=== PATIENT | male | born 1960 | race Caucasian/White ===

== ENCOUNTER 2017-01-05 13:14 | Emergency (ER) | payer OTHER ==
[~2017-01-05] VITALS: Ht 175.3 cm; Wt 86.2 kg
[~2017-01-05 13:14] MED LIST: ACET325T9 PO; ALBU2.5V14 NEB; FURO-68 PO; LACT10SO PO; ONDA4TAB10 SL; PANT40TA3 PO; PROP40SO PO; SOFO400T PO; SPIR100T2 PO; TAMS0.4C97 PO; [UNRECOGNIZED DRUG - CODE] PO
[2017-01-05] MEDS ORDERED: IV NORMAL SALINE 1000ML BAG 1,000 ML IV SCH (13:37)
[2017-01-05] MEDS ORDERED: ONDANSETRON PF 4 MG/2 ML VIAL. IV ONE (13:45)
[2017-01-05] MEDS ORDERED: IOHEXOL 300 MG/ML 100ML VIAL. IV ONE (13:45)
[2017-01-05] MEDS ORDERED: 0.9 % SODIUM CHLORIDE 10 ML DISP.SYRIN. IV PRN (13:45)
--- NOTE | 2017-01-05 13:46 | PHYS DOC ---
Past Medical History Past Medical History: GERD, Other Additional Past Medical Histor: Hepatitis C/ knOwn portal vein thrombosis Past Surgical History: Other Additional Past Surgical Histo: bilateral shoulders, bilateral hips, lower leg left Smoking: Cigarettes, Quit Greater Than 1 Year Alcohol Use: None Drug Use: None Adult General Chief Complaint Chief Complaint: SHORTNESS OF BREATH [facility] HPI Is a pleasant 56-year-old male inmate coming from a correctional facility with progressive shortness of breath and hemoptysis. Patient admits of last week is having progressive shortness of breath while walking and exerting himself with a productive cough used to be just blood-tinged sputum and now is coughing clots. Patient was smoker in the past as quit >20 years ago. He admits to having hepatitis C and a portal vein thrombosis but does not seem to be on anticoagulation. patient presents with an episode of nausea and vomiting where he had blood as well that he believes he ingested. he has right upper quadrant abdominal pain began with coughing. Patient says the pain in his chest is centrally located with no radiation to the back radiation to the neck or shoulder. It is not constant and GOES with the cough. Pain at this time is only 3 of 10. Patient denies any fevers, chills, night sweats, weight loss,diarrhea, constipation or UTI symptoms.denies any trauma, travel outside the country or recent antibiotic use. does complain of left calf pain and left thigh pain. This pain began about the same time is shortness breath began. He has no PE risk factors Review of Systems Review of Systems Constitutional: Denies fever or chills [] Eyes: Denies change in visual acuity, redness, or eye pain [] HENT: Denies nasal congestion or sore throat [] Respiratory:combined shortness of breath and the cough. Cardiovascular: No additional information not addressed in HPI [] GI: as been suffering from right upper quadrant abdominal pain with nausea and vomiting 1 described as hematemesis no diarrhea patient : Denies dysuria or hematuria [] Musculoskeletal: Denies back pain or joint pain complain of left thigh and left calf pain Integument: Denies rash or skin lesions [] Neurologic: Denies headache, focal weakness or sensory changes [] Endocrine: Denies polyuria or polydipsia [] All other systems were reviewed and found to be within normal limits, except as documented in this note. Current Medications Current Medications Current Medications Medications (Trade) Dose Ordered Sig/Ameya Start Time Stop Time Status Last Admin Dose Admin Info (Do NOT chart on this entry -- for MONITORING) 1 each PRN DAILY PRN 01/05/17 14:00 01/07/17 13:59 Iohexol (Omnipaque 300 Mg/ml) 75 ml 1X ONCE 01/05/17 13:45 01/05/17 13:46 DC Ondansetron HCl (Zofran) 4 mg 1X ONCE 01/05/17 13:45 01/05/17 13:46 DC 01/05/17 14:17 4 MG Sodium Chloride (Normal Saline Flush) 10 ml QSHIFT PRN 01/05/17 13:45 Allergies Allergies Allergies Coded Allergies Type Severity Reaction Last Updated Verified Carbapenems Allergy Intermediate 10/01/14 No Cephalosporins Allergy Intermediate 10/01/14 No Penicillins Allergy Intermediate 10/01/14 No aztreonam Allergy Intermediate 10/01/14 No morphine Allergy Intermediate 10/01/14 No Physical Exam Physical Exam Constitutional: Well developed, well nourished, no acute distress, non-toxic appearance. [] HENT: Normocephalic, atraumatic, bilateral external ears normal, oropharynx moist, no oral exudates, nose normal. [] Eyes: PERRLA, EOMI, conjunctiva normal, no discharge. [] Neck: Normal range of motion, no tenderness, supple, no stridor. [] Cardiovascular:Heart rate regular rhythm, no murmur [] Lungs & Thorax: Bilateral breath sounds clear to auscultation [] Abdomen: Bowel sounds normal, soft, no tenderness, no masses, no pulsatile masses. [] Skin: Warm, dry, no erythema, no rash. [] Back: No tenderness, no CVA tenderness. [] Extremities: No tenderness, no cyanosis, no clubbing, ROM intact, no edema. [] Neurologic: Alert and oriented X 3, normal motor function, normal sensory function, no focal deficits noted. [] Psychologic: Affect normal, judgement normal, mood normal. [] Current Patient Data Vital Signs Vital Signs Date Time Temp Pulse Resp B/P (MAP) Pulse Ox O2 Delivery O2 Flow Rate FiO2 01/05/17 13:25 98.3 53 22 139/67 (91) 95 Room Air 98.3 Lab Values Laboratory Tests Test 01/05/17 14:06 White Blood Count 4.4 x10^3/uL (4.0-11.0) Red Blood Count 4.02 x10^6/uL (4.30-5.70) L Hemoglobin 13.5 g/dL (13.0-17.5) Hematocrit 39.6 % (39.0-53.0) Mean Corpuscular Volume 99 fL (79-100) Mean Corpuscular Hemoglobin 33 pg (25-35) Mean Corpuscular Hemoglobin Concent 34 g/dL (31-37) Red Cell Distribution Width 14.9 % (11.5-14.5) H Platelet Count 86 x10^3/uL (140-400) L Neutrophils (%) (Auto) 64 % (31-73) Lymphocytes (%) (Auto) 20 % (24-48) L Monocytes (%) (Auto) 12 % (0-9) H Eosinophils (%) (Auto) 4 % (0-3) H Basophils (%) (Auto) 1 % (0-3) Neutrophils # (Auto) 2.8 x10^3uL (1.8-7.7) Lymphocytes # (Auto) 0.9 x10^3/uL (1.0-4.8) L Monocytes # (Auto) 0.5 x10^3/uL (0.0-1.1) Eosinophils # (Auto) 0.2 x10^3/uL (0.0-0.7) Basophils # (Auto) 0.0 x10^3/uL (0.0-0.2) Sodium Level 136 mmol/L (136-145) Potassium Level 4.3 mmol/L (3.5-5.1) Chloride Level 102 mmol/L (98-107) Carbon Dioxide Level 29 mmol/L (21-32) Anion Gap 5 (6-14) L Blood Urea Nitrogen 10 mg/dL (8-26) Creatinine 0.7 mg/dL (0.7-1.3) Estimated GFR (Cockcroft-Gault) 117.1 Glucose Level 84 mg/dL (70-99) Lactic Acid Level 1.0 mmol/L (0.4-2.0) Calcium Level 9.2 mg/dL (8.5-10.1) Magnesium Level Pending Total Bilirubin Pending Direct Bilirubin Pending Aspartate Amino Transferase (AST) Pending Alanine Aminotransferase (ALT) Pending Alkaline Phosphatase Pending Troponin I Quantitative < 0.017 ng/mL (0.000-0.055) GZ-[id number]-H-Type Natriuretic Peptide 173 pg/mL (0-124) H Total Protein Pending Albumin Pending Lipase Pending Thyroid Stimulating Hormone (TSH) 2.395 uIU/mL (0.358-3.74) Laboratory Tests 01/05/17 14:06 Laboratory Tests 01/05/17 14:06 EKG EKG [] Radiology/Procedures Radiology/Procedures []Seen review AP chest reviewed by me 1350 3 PM 01/05/2017 demonstrates no acute infiltrate, no cardiomegaly, no Fine's hump, no pleural effusion. Course & Med Decision Making Course & Med Decision Making Pertinent Labs and Imaging studies reviewed. (See chart for details) Differential diagnosis: Acute myocardial ischemia, heart failure, cardiac tamponade, bronchospasm, pulmonary embolism, pneumothorax, pulmonary infection i.e. bronchitis or pneumonia, upper airway obstruction, anaphylaxis, aspiration , psychogenic, pulmonary contusion, toxidrome, pneumomediastinum, noncardiogenic pulmonary edema or ARDS, COPD, tuberculosis, cystic fibrosis, asthma, high altitude pulmonary edema, valvular dysfunction, cardiac dysrhythmia , stroke, neuromuscular diseases like myasthenia gravis gravis, ALS, Guillain- Lundberg syndrome, metabolic acidosis to include diabetic ketoacidosis, sepsis, and obstructive disorders like massive obesity [] Differential diagnosis for chest pain: Pericarditis, myocarditis, endocarditis, pneumothorax, pneumonia, aortic dissection, esophageal spasm, esophagitis, peptic ulcer disease, acute coronary syndrome, mediastinitis, Boerhaave syndrome , musculoskeletal chest wall pain, costochondritis, intercostal strain, rib fracture, pulmonary contusion, pneumonitis, pleural effusion, pericardial effusion, pericardial tamponode, and pleurisy. EKG arrival read by me demonstrates at TM heart rate of 53 sinus rhythm with a P -wave to be QRS UT interval 144 which is normal, QRS width which is 98 which is normal, QTc 45 which is normal, this is normal looking EKG with no evidence of right heart strain consistent with pulmonary embolism no S1 Q3 T3 Time is now 12:40 PM patient is resting currently waiting for a CAT scan of the chest to be completed. Other laboratory work resulted patient's CBC is normal, CMP is normal, proBNP is mildly elevated at 173 patient's troponin is negative anion gap is negative. Is a patient's lower leg pain and history of portal vein thrombosis ultrasound as been ordered as well as a CAT scan of the chest ruling out pulmonary embolism. Laboratory Tests Test 01/05/17 14:06 White Blood Count 4.4 x10^3/uL (4.0-11.0) Red Blood Count 4.02 x10^6/uL (4.30-5.70) Hemoglobin 13.5 g/dL (13.0-17.5) Hematocrit 39.6 % (39.0-53.0) Mean Corpuscular Volume 99 fL (79-100) Mean Corpuscular Hemoglobin 33 pg (25-35) Mean Corpuscular Hemoglobin Concent 34 g/dL (31-37) Red Cell Distribution Width 14.9 % (11.5-14.5) Platelet Count 86 x10^3/uL (140-400) Neutrophils (%) (Auto) 64 % (31-73) Lymphocytes (%) (Auto) 20 % (24-48) Monocytes (%) (Auto) 12 % (0-9) Eosinophils (%) (Auto) 4 % (0-3) Basophils (%) (Auto) 1 % (0-3) Neutrophils # (Auto) 2.8 x10^3uL (1.8-7.7) Lymphocytes # (Auto) 0.9 x10^3/uL (1.0-4.8) Monocytes # (Auto) 0.5 x10^3/uL (0.0-1.1) Eosinophils # (Auto) 0.2 x10^3/uL (0.0-0.7) Basophils # (Auto) 0.0 x10^3/uL (0.0-0.2) Sodium Level 136 mmol/L (136-145) Chloride Level 102 mmol/L (98-107) Carbon Dioxide Level 29 mmol/L (21-32) Anion Gap 5 (6-14) Blood Urea Nitrogen 10 mg/dL (8-26) Estimated GFR (Cockcroft-Gault) 117.1 Glucose Level 84 mg/dL (70-99) Lactic Acid Level 1.0 mmol/L (0.4-2.0) Calcium Level 9.2 mg/dL (8.5-10.1) Troponin I Quantitative < 0.017 ng/mL (0.000-0.055) Patient will be turned over to oncoming physician Dr. Rolle pending CT chest for PE rule out and also on the lower legs. Patient sells a PT/INR also pending at this time. please react and treatment. Findings and disposition appropriately if needed Dragon Disclaimer Dragon Disclaimer This electronic medical record was generated, in whole or in part, using a voice recognition dictation system. Departure Departure Referrals: NADYA HOFFMAN (PCP) CHRIS PATHAK MD Jan 05, 2017 13:46
--- NOTE | 2017-01-05 13:58 | EKG ---
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
[2017-01-05] MEDS ORDERED: CONTRAST GIVEN MC PRN (14:00)
--- NOTE | 2017-01-05 14:13 | RAD ---
Portable chest, 01/05/2017: History: Chest pain, shortness of breath, coughing up blood The heart size and pulmonary vascularity are normal. No pulmonary infiltrates are seen. There is no evidence of pleural fluid. IMPRESSION: No acute cardiopulmonary abnormality is detected.
[2017-01-05 14:23] LABS: BASO % 1 % (0-3); EOS % 4 % (0-3); HEMATOCRIT 39.6 % (39.0-53.0); HEMOGLOBIN 13.5 g/dL (13.0-17.5); LYMPH # 0.9 x10^3/uL (1.0-4.8); LYMPH % 20 % (24-48); MEAN CORPUSCULAR HEMOGLOBIN 33 pg (25-35); MEAN CORPUSCULAR HGB CONC 34 g/dL (31-37); MEAN CORPUSCULAR VOLUME 99 fL (79-100); MONO % 12 % (0-9); NEUT % 64 % (31-73); PLATELET COUNT 86 x10^3/uL (140-400); RED BLOOD COUNT 4.02 x10^6/uL (4.30-5.70); RED CELL DISTRIBUTION WIDTH 14.9 % (11.5-14.5); WHITE BLOOD COUNT 4.4 x10^3/uL (4.0-11.0)
[2017-01-05 14:32] LABS: CALCIUM 9.2 mg/dL (8.5-10.1); CREATININE 0.7 mg/dL (0.7-1.3); GFR 117.1; POTASSIUM 4.3 mmol/L (3.5-5.1)
[2017-01-05 14:48] LABS: ALBUMIN 2.5 g/dL (3.4-5.0); DIRECT BILIRUBIN 0.8 mg/dL (0.0-0.2); MAGNESIUM 1.7 mg/dL (1.8-2.4); TOTAL BILIRUBIN 2.6 mg/dL (0.2-1.0); TOTAL PROTEIN 7.6 g/dL (6.4-8.2)
--- NOTE | 2017-01-05 15:00 | RAD ---
Ultrasound DVT left lower extremity 01/05/2017 Clinical indication: Left leg pain with normal portal vein thrombus. Comparison: None. Findings: Garza scale, color Doppler and spectral waveform analysis of the left lower extremity was obtained with serial graded compression and augmentation of the venous system. Left common femoral, insertion of the deep femoral, femoral and popliteal veins are patent with normal color Doppler imaging. Limited evaluation of the right lower extremity calf veins unremarkable. Impression: No evidence of DVT in the left lower extremity.
[2017-01-05 15:14] LABS: INR 1.2 (0.8-1.1); PROTHROMBIN TIME PATIENT 14.3 SEC (11.7-14.0)
--- NOTE | 2017-01-05 15:20 | RAD ---
CTA chest 01/05/2017 Clinical indication: Chest pain, hemoptysis. Comparison: Same day chest radiograph Technique: Multiple CTA images of the chest were obtained following the intravenous and menstruation of 75 mL Omnipaque 300. MIPS were performed of the chest. PQRS Compliance Statement: One or more of the following individualized dose reduction techniques were utilized for this examination: 1. Automated exposure control 2. Adjustment of the mA and/or kV according to patient size 3. Use of iterative reconstruction technique Findings: Heart size is normal without signal and pericardial effusion. The thoracic aorta is normal in caliber with mild scattered calcified atheromatous disease. Coronary artery calcifications are noted. Examination of subsegmental pulmonary artery branches is significantly limited due to contrast timing. No central or major segmental pulmonary artery filling defect. No evidence of right heart strain. The central airways are patent. There is mild bilateral symmetric and [place] tip. There is mild upper lobe predominant centrilobular and paraseptal emphysema. No pleural effusion or pneumothorax. No suspicious noncalcified pulmonary nodule. There are no destructive osseous lesions. Limited images of the upper abdomen: Nodular contour to the surface of the liver compatible with cirrhosis. There are multiple irregular hypodensities the visualized hepatic parenchyma most prominent centrally measuring 0.9 cm series 3/image 125. There are multiple upper abdominal portosystemic varices. Splenomegaly. There is possible periportal lymphadenopathy. Impression: 1. Suboptimal evaluation of the subsegmental pulmonary arteries due to contrast timing. No central or major segmental pulmonary artery filling defect to suggest pulmonary embolism. 2. No pleural effusion or focal airspace consolidation. 3. Cirrhosis and portal hypertension with upper abdominal portosystemic varices and splenomegaly. 4. Irregular hypodensities in the visualized hepatic parenchyma which are incompletely characterized. Nonemergent liver MRI with and without contrast is recommended to exclude hepatocellular carcinoma. 5. Suggestion of periportal lymphadenopathy.
[2017-01-05 16:56] LABS: BARBITURATES NEG (NEG); BENZODIAZEPINES NEG (NEG); CANNABINOIDS NEG (NEG); COCAINE NEG (NEG); METHADONE NEG (NEG); OPIATES NEG (NEG); PHENCYCLIDINE NEG (NEG)
[2017-01-05 17:06] LABS: BILIRUBIN,URINE NEGATIVE (NEG); GLUCOSE,URINE NEGATIVE (NEG); NITRITE,URINE NEGATIVE (NEG); PROTEIN,URINE NEGATIVE (NEG-TRACE)
[2017-01-05 17:07] LABS: BACTERIA,URINE FEW /HPF (0-FEW); WBC,URINE OCC /HPF (0-4)
[2017-01-05 17:44] VITALS: BP 134/63
== END 2017-01-05 17:58 | disposition home or self-care (01) ==
LOC: ER 13:14 → EEVIPCON 13:14 → ER 17:58
DX: R06.00 Dyspnea, unspecified (principal); R74.0 Nonspecific elevation of levels of transaminase and lactic acid dehydrogenase [LDH]; I81 Portal vein thrombosis; M79.662 Pain in left lower leg; M79.652 Pain in left thigh; R04.2 Hemoptysis; K21.9 Gastro-esophageal reflux disease without esophagitis; Z88.0 Allergy status to penicillin; Z88.5 Allergy status to narcotic agent; Z88.8 Allergy status to other drugs, medicaments and biological substances; Z88.1 Allergy status to other antibiotic agents; Z87.891 Personal history of nicotine dependence
CPT/HCPCS: 36415; 71010; 71275; 80048; 80076; 80307; 81001; 83605; 83690; 83735; 83880; 84443; 84484; 85025; 85610; 87040; 87086; 93005; 93971; 96361; 96374; 99285; J2405; J7030; Q9967; G0479

== ENCOUNTER 2017-05-24 14:11 | Inpatient (IN) | payer OTHER ==
[2017-05-24 15:36] LABS: ADD MAN DIFF? NO
[2017-05-24 15:40] LABS: BASE EXCESS ABG -5 mmol/L (-3-3); HCO3 ABG 20 mmol/L (21-28); PCO2 ABG 35 mmHg (35-46); PH ABG 7.37 (7.35-7.45); PO2 ABG 109 mmHg (75-108); SAT O2 ABG 98 % (92-99)
[2017-05-24 15:41] LABS: BASO # 0.1 x10^3/uL (0.0-0.2); BASO % 1 % (0-3); EOS # 0.3 x10^3/uL (0.0-0.7); EOS % 3 % (0-3); FIO2 ABG 28%; HEMATOCRIT 32.3 % (39.0-53.0); HEMOGLOBIN 11.4 g/dL (13.0-17.5); LYMPH # 0.5 x10^3/uL (1.0-4.8); LYMPH % 6 % (24-48); MEAN CORPUSCULAR HEMOGLOBIN 37 pg (25-35); MEAN CORPUSCULAR HGB CONC 35 g/dL (31-37); MEAN CORPUSCULAR VOLUME 104 fL (79-100); MONO % 13 % (0-9); NEUT # 6.2 x10^3uL (1.8-7.7); NEUT % 77 % (31-73); O2 DELIVERY DEVICE NC; PLATELET COUNT 87 x10^3/uL (140-400); RED CELL DISTRIBUTION WIDTH 14.3 % (11.5-14.5); WHITE BLOOD COUNT 8.1 x10^3/uL (4.0-11.0)
[2017-05-24 15:50] LABS: INR 1.6 (0.8-1.1); PARTIAL THROMBOPLASTIN TIME 35 SEC (24-38); PROTHROMBIN TIME PATIENT 18.6 SEC (11.7-14.0)
[2017-05-24 16:02] LABS: AMMONIA 86 mcmol/L (11-34)
[2017-05-24 16:09] LABS: ANION GAP 15 (6-14); BLOOD UREA NITROGEN 60 mg/dL (8-26); BUN/CREATININE RATIO 9 (6-20); CALCIUM 8.4 mg/dL (8.5-10.1); CARBON DIOXIDE 23 mmol/L (21-32); CHLORIDE 95 mmol/L (98-107); CREATININE 6.7 mg/dL (0.7-1.3); GFR 8.6; GLUCOSE 107 mg/dL (70-99); POTASSIUM 4.5 mmol/L (3.5-5.1); SODIUM 133 mmol/L (136-145)
[2017-05-24 16:10] LABS: LACTIC ACID 2.3 mmol/L (0.4-2.0)
[2017-05-24 16:18] LABS: NT-PRO BNP 834 pg/mL (0-124)
[2017-05-24 16:21] LABS: THYROID STIM HORMONE (TSH) 0.666 uIU/mL (0.358-3.74)
[2017-05-24 16:22] LABS: ALBUMIN 1.3 g/dL (3.4-5.0); ALBUMIN/GLOBULIN RATIO 0.3 (1.0-1.7); ALT (SGPT) 474 U/L (16-63); AST (SGOT) 360 U/L (15-37); TOTAL BILIRUBIN 24.1 mg/dL (0.2-1.0); TOTAL PROTEIN 5.9 g/dL (6.4-8.2)
[2017-05-24 16:25] LABS: ALK PHOS 2035 U/L (46-116)
[2017-05-24 16:25] LABS: TROPONINI < 0.017 ng/mL (0.000-0.055)
[2017-05-24 16:34] LABS: BILIRUBIN,URINE LARGE (NEG); CLARITY,URINE CLOUDY; GLUCOSE,URINE NEGATIVE (NEG); PH,URINE 5.5; PROTEIN,URINE 30 mg/dL (NEG-TRACE)
[2017-05-24 16:39] LABS: COLOR,URINE AMBER
[2017-05-24 16:41] LABS: AMORPHOUS SEDIMENT,UR PRESENT /HPF; BACTERIA,URINE 0 /HPF (0-FEW); RBC,URINE 0 /HPF (0-2); SQUAMOUS EPITHELIAL CELL,UR OCC /LPF
[2017-05-24] MEDS ORDERED: levOFLOXacin PER PHARMACY. MC (17:45)
[2017-05-24] MEDS ORDERED: LACTULOSE 20 GM/30 ML SOLUTION. PO ×2 (18:00→18:15)
[2017-05-24] MEDS: IV NORMAL SALINE 1000ML BAG 1,000 ML IV ×2 (18:15→19:48)
[2017-05-24] MEDS: ONDANSETRON PF 4 MG/2 ML VIAL. IV (18:22)
[2017-05-24] MEDS: LACTULOSE 20 GM/30 ML SOLUTION. PO (19:30)
[2017-05-24 20:33] LABS: POC GLUCOSE 99 mg/dL (70-99)
[2017-05-24] MEDS: PHYTONADIONE (VIT K1) IV 10 MG in IV DEXTROSE 5% 50 ML IV (21:15)
[2017-05-24 21:49] LABS: LACTIC ACID 1.8 mmol/L (0.4-2.0)
[2017-05-25] MEDS: IV NORMAL SALINE 1000ML BAG 1,000 ML IV ×3 (02:50→20:20)
[2017-05-25 05:45] LABS: ADD MAN DIFF? NO
[2017-05-25 05:51] LABS: BASO # 0.1 x10^3/uL (0.0-0.2); BASO % 1 % (0-3); EOS # 0.2 x10^3/uL (0.0-0.7); EOS % 3 % (0-3); HEMATOCRIT 28.7 % (39.0-53.0); HEMOGLOBIN 10.2 g/dL (13.0-17.5); LYMPH # 2.6 x10^3/uL (1.0-4.8); LYMPH % 40 % (24-48); MEAN CORPUSCULAR HEMOGLOBIN 37 pg (25-35); MEAN CORPUSCULAR HGB CONC 36 g/dL (31-37); MEAN CORPUSCULAR VOLUME 103 fL (79-100); MONO # 0.7 x10^3/uL (0.0-1.1); MONO % 11 % (0-9); NEUT % 45 % (31-73); PLATELET COUNT 77 x10^3/uL (140-400); RED BLOOD COUNT 2.77 x10^6/uL (4.30-5.70); RED CELL DISTRIBUTION WIDTH 14.1 % (11.5-14.5); WHITE BLOOD COUNT 6.6 x10^3/uL (4.0-11.0)
[2017-05-25 05:58] LABS: AMMONIA 123 mcmol/L (11-34)
[2017-05-25 06:25] LABS: ALBUMIN 1.1 g/dL (3.4-5.0); ALBUMIN/GLOBULIN RATIO 0.3 (1.0-1.7); ALT (SGPT) 424 U/L (16-63); ANION GAP 17 (6-14); AST (SGOT) 311 U/L (15-37); BLOOD UREA NITROGEN 66 mg/dL (8-26); BUN/CREATININE RATIO 9 (6-20); CALCIUM 7.6 mg/dL (8.5-10.1); CARBON DIOXIDE 19 mmol/L (21-32); CHLORIDE 100 mmol/L (98-107); GFR 8.2; GLUCOSE 76 mg/dL (70-99); POTASSIUM 4.6 mmol/L (3.5-5.1); SODIUM 136 mmol/L (136-145); TOTAL PROTEIN 5.3 g/dL (6.4-8.2)
[2017-05-25 06:27] LABS: ALK PHOS 1731 U/L (46-116)
[2017-05-25] MEDS ORDERED: ALBUTEROL SULFATE 2.5 MG/3 ML NEBU. NEB (09:00)
[2017-05-25] MEDS ORDERED: ONDANSETRON PF 4 MG/2 ML VIAL. IV (09:00)
[2017-05-25] MEDS: TAMSULOSIN 0.4 MG CAP.ER.24H. PO (09:00)
[2017-05-25] MEDS ORDERED: HYDROcodone/APAP 5/325MG 1 TAB TABLET PO (09:00)
[2017-05-25] MEDS: LACTULOSE 20 GM/30 ML SOLUTION. PO ×2 (09:00→21:00)
[2017-05-25] MEDS: PANTOPRAZOLE 40 MG TABLET.DR. PO (11:30)
[2017-05-25 12:22] LABS: INR 1.5 (0.8-1.1); PROTHROMBIN TIME PATIENT 17.1 SEC (11.7-14.0)
[2017-05-25 12:35] LABS: AMMONIA 47 mcmol/L (11-34)
[2017-05-25] MEDS ORDERED: LIDOCAINE WITH 8.4% SOD BICARB 3 ML DISP.SYRIN. (13:17)
[2017-05-25] MEDS ORDERED: HEPARIN for IV BOLUS 10,000 UNIT/10 ML VIAL. (13:17)
[2017-05-25 13:18] LABS: MRSA BY PCR Positive (Negative)
[2017-05-25] MEDS: PHYTONADIONE 10 MG/ML AMPUL. SQ (15:52)
[2017-05-25 16:17] LABS: HCV ANTIBODY >11.0 s/co ratio (0.0-0.9); HEP A IGM ABDY Negative (Negative); HEP B SURFACE AG Negative (Negative)
[2017-05-26 05:15] LABS: ADD MAN DIFF? NO
[2017-05-26 05:43] LABS: ALBUMIN 1.2 g/dL (3.4-5.0); ANION GAP 18 (6-14); BLOOD UREA NITROGEN 83 mg/dL (8-26); CALCIUM 7.6 mg/dL (8.5-10.1); CARBON DIOXIDE 18 mmol/L (21-32); CHLORIDE 102 mmol/L (98-107); GLUCOSE 90 mg/dL (70-99); PHOSPHORUS 8.9 mg/dL (2.6-4.7); POTASSIUM 4.9 mmol/L (3.5-5.1); SODIUM 138 mmol/L (136-145)
[2017-05-26 05:55] LABS: BASO # 0.1 x10^3/uL (0.0-0.2); BASO % 1 % (0-3); EOS # 0.2 x10^3/uL (0.0-0.7); EOS % 2 % (0-3); HEMATOCRIT 32.1 % (39.0-53.0); HEMOGLOBIN 11.2 g/dL (13.0-17.5); LYMPH # 0.6 x10^3/uL (1.0-4.8); LYMPH % 7 % (24-48); MEAN CORPUSCULAR HEMOGLOBIN 37 pg (25-35); MEAN CORPUSCULAR HGB CONC 35 g/dL (31-37); MEAN CORPUSCULAR VOLUME 105 fL (79-100); MONO # 1.4 x10^3/uL (0.0-1.1); MONO % 16 % (0-9); NEUT # 6.1 x10^3uL (1.8-7.7); NEUT % 73 % (31-73); PLATELET COUNT 93 x10^3/uL (140-400); RED BLOOD COUNT 3.05 x10^6/uL (4.30-5.70); RED CELL DISTRIBUTION WIDTH 14.4 % (11.5-14.5); WHITE BLOOD COUNT 8.4 x10^3/uL (4.0-11.0)
[2017-05-26 06:53] LABS: PLT ESTIMATE DECREASED (ADEQUATE)
[2017-05-26] MEDS: LACTULOSE 20 GM/30 ML SOLUTION. PO ×2 (09:00→19:38)
[2017-05-26] MEDS: TAMSULOSIN 0.4 MG CAP.ER.24H. PO (09:00)
[2017-05-26] MEDS: PANTOPRAZOLE 40 MG TABLET.DR. PO (09:00)
[2017-05-26 12:42] LABS: ALT (SGPT) 489 U/L (16-63); TOTAL BILIRUBIN 24.2 mg/dL (0.2-1.0); TOTAL PROTEIN 5.1 g/dL (6.4-8.2)
[2017-05-26 12:55] LABS: AST (SGOT) 356 U/L (15-37)
[2017-05-26 12:56] LABS: ALBUMIN 1.2 g/dL (3.4-5.0); ALK PHOS 1945 U/L (46-116); DIRECT BILIRUBIN 19.1 mg/dL (0.0-0.2)
[2017-05-26] MEDS ORDERED: LACTULOSE 20 GM/30 ML SOLUTION. PO (13:00)
[2017-05-26 14:26] LABS: CEA 4.3 ng/mL (0.0-4.7)
[2017-05-26 14:26] LABS: CA 19-9 78 U/mL (0-35)
[2017-05-26] MEDS: IV NORMAL SALINE 1000ML BAG 1,000 ML IV ×2 (17:00→22:45)
[2017-05-26] MEDS ORDERED: oxyCODONE/APAP 5/325 1 TAB TABLET PO ×2 (21:15→21:30)
[2017-05-26] MEDS: fentaNYL PF VIAL 100 MCG/2 ML VIAL IV (21:22)
[2017-05-27] MEDS: fentaNYL PF VIAL 100 MCG/2 ML VIAL IV ×2 (00:02→12:10)
[2017-05-27] MEDS: IV NORMAL SALINE 1000ML BAG 1,000 ML IV ×2 (00:02→09:50)
[2017-05-27 06:27] LABS: ADD MAN DIFF? NO
[2017-05-27 06:42] LABS: BASO # 0.1 x10^3/uL (0.0-0.2); BASO % 1 % (0-3); EOS # 0.1 x10^3/uL (0.0-0.7); EOS % 1 % (0-3); HEMATOCRIT 31.5 % (39.0-53.0); HEMOGLOBIN 11.1 g/dL (13.0-17.5); LYMPH # 0.9 x10^3/uL (1.0-4.8); LYMPH % 11 % (24-48); MEAN CORPUSCULAR HEMOGLOBIN 37 pg (25-35); MEAN CORPUSCULAR HGB CONC 35 g/dL (31-37); MEAN CORPUSCULAR VOLUME 104 fL (79-100); MONO # 1.4 x10^3/uL (0.0-1.1); MONO % 16 % (0-9); NEUT # 6.2 x10^3uL (1.8-7.7); NEUT % 72 % (31-73); PLATELET COUNT 97 x10^3/uL (140-400); RED BLOOD COUNT 3.02 x10^6/uL (4.30-5.70); RED CELL DISTRIBUTION WIDTH 14.4 % (11.5-14.5); WHITE BLOOD COUNT 8.7 x10^3/uL (4.0-11.0)
[2017-05-27 06:59] LABS: ALBUMIN 1.2 g/dL (3.4-5.0); ANION GAP 18 (6-14); BLOOD UREA NITROGEN 104 mg/dL (8-26); CALCIUM 8.1 mg/dL (8.5-10.1); CARBON DIOXIDE 16 mmol/L (21-32); CHLORIDE 104 mmol/L (98-107); CREATININE 8.8 mg/dL (0.7-1.3); GFR 6.3; GLUCOSE 99 mg/dL (70-99); POTASSIUM 5.3 mmol/L (3.5-5.1); SODIUM 138 mmol/L (136-145)
[2017-05-27 07:00] LABS: PHOSPHORUS 10.4 mg/dL (2.6-4.7)
[2017-05-27] MEDS: TAMSULOSIN 0.4 MG CAP.ER.24H. PO (07:13)
[2017-05-27] MEDS: LACTULOSE 20 GM/30 ML SOLUTION. PO (07:14)
[2017-05-27] MEDS: PANTOPRAZOLE 40 MG TABLET.DR. PO (07:14)
[2017-05-27] MEDS ORDERED: MORPHINE SULFATE 20 MG/ML CONC SOLUTION. SL (11:00)
[2017-05-27] MEDS: LORazepam INTENSOL 2 MG/ML ORAL.CONC SL (12:17)
== END 2017-05-27 14:07 | disposition home or self-care (01) | DRG 441 ==
LOC: ER 14:11 → 1 WEST ICU 18:00
DX: K72.00 Acute and subacute hepatic failure without coma (principal); K76.7 Hepatorenal syndrome; G93.40 Encephalopathy, unspecified; I81 Portal vein thrombosis; I95.9 Hypotension, unspecified; I85.10 Secondary esophageal varices without bleeding; N17.9 Acute kidney failure, unspecified; D68.4 Acquired coagulation factor deficiency; K76.6 Portal hypertension; R18.8 Other ascites; D69.6 Thrombocytopenia, unspecified; D63.8 Anemia in other chronic diseases classified elsewhere; B19.20 Unspecified viral hepatitis C without hepatic coma; E78.5 Hyperlipidemia, unspecified; E86.1 Hypovolemia; G40.909 Epilepsy, unspecified, not intractable, without status epilepticus; I10 Essential (primary) hypertension; I25.10 Atherosclerotic heart disease of native coronary artery without angina pectoris; Z88.0 Allergy status to penicillin; Z88.8 Allergy status to other drugs, medicaments and biological substances; I51.7 Cardiomegaly; J44.9 Chronic obstructive pulmonary disease, unspecified; K21.9 Gastro-esophageal reflux disease without esophagitis; K74.60 Unspecified cirrhosis of liver; N18.9 Chronic kidney disease, unspecified; N28.1 Cyst of kidney, acquired; N40.0 Benign prostatic hyperplasia without lower urinary tract symptoms; Z51.5 Encounter for palliative care; Z66 Do not resuscitate; Z82.5 Family history of asthma and other chronic lower respiratory diseases; Z86.718 Personal history of other venous thrombosis and embolism; Z87.891 Personal history of nicotine dependence
CPT/HCPCS: 36415; 36600; 70250; 70450; 71045; 71250; 74176; 76705; 80053; 80069; 80074; 80076; 81001; 82105; 82140; 82378; 82805; 82962; 83605; 83880; 84443; 84484; 85025; 85610; 85730; 86301; 87040; 87086; 87641; 93005; J1956; J2405; J3010; J3430; J3490; J7030